=== PATIENT | female | born 1990 | race Two or more races ===

== ENCOUNTER 2016-08-13 04:53 | Inpatient (IN) | payer OTHER ==
[~2016-08-13] VITALS: Ht 167.6 cm; Wt 76.9 kg
--- NOTE | ~2016-08-13 | CON ---
PATIENT'S NAME: SAMPSON VILLELA [facility] AGE: 26 Y [address] ROOM: [address] [address] LOCATION: GOBS ADMIT DATE: 08/13/2016 Consultation DISCHARGE DATE: FAMILY PHYSICIAN: Crispin Barrett MD ATTENDING PHYSICIAN: Crispin Barrett DATE OF CONSULTATION: 08/13/2016 HISTORY OF PRESENT ILLNESS: This is a 26-year-old, 2, para 0-0-1-0, with an EDC of 08/12/2016. She presented earlier this morning in spontaneous early labor for Dr. Crispin Barrett. She is demond about every 2 to 3 minutes and changed her cervix from 1 to 2 cm. However, she had a prolonged bradycardia down into the 60s for over 6 minutes, now that was very slow to resolve despite maneuvers. Initially, a code red for section was called. The heart tones now were 130s with excellent variability and reactivity, so will go ahead and do a spinal anesthetic and monitor baby while we are doing that, and do a section. We recommended a primary low-transverse section for bradycardia. She understands the surgical risks to include, but not limited to, bleeding, transfusion, infection, injury to other organs, and need for additional surgery. We discussed specifically injury to the bowel, bladder, blood vessels, and ureters. We discussed needing sections in the future. The patient has no allergies so we will give her Ancef, and she has never had an operation. Her care has been otherwise uncomplicated. MD SIVAN WAN/dana /[id number] d: 08/13/16 1544 t: 08/19/16 1647, CONSULTATION REPORT
--- NOTE | ~2016-08-13 | HP ---
PATIENT'S NAME: TIMMY SO [facility] AGE: 26 Y [address] ROOM: [place] [address] LOCATION: [facility] ADMIT DATE: 08/13/2016 History & Physical DISCHARGE DATE: FAMILY PHYSICIAN: Sabine Barrett MD ATTENDING PHYSICIAN: Sabine Barrett DATE OF SERVICE: CHIEF COMPLAINT: Question of labor. HISTORY OF PRESENT ILLNESS: The patient is a 26-year-old, 2, para 0-0-1-0 with an EDC of 08/12/2016 who came in with contractions every two to three minutes. She was found to be 1 cm upon presentation. Her has been unremarkable to this point. She is GBS negative. PAST MEDICAL HISTORY: Reviewed and updated from [facility] , and for the most part, is unremarkable other than a history of multiple sclerosis, GERD, and history of palpitations. PAST SURGICAL HISTORY: She has no prior surgical history. CURRENT MEDICATIONS LIST: Include 1. Lansoprazole 30 mg once a day. 2. Promethazine 25 mg p.r.n. 3. vitamins. ALLERGIES: NONE. SOCIAL HISTORY: She is a non-smoker and non-drinker. Her accompanies her. PHYSICAL EXAMINATION: HEENT: Benign. HEART: Regular rate and rhythm. LUNGS: Clear to auscultation bilaterally without wheezes, rhonchi, or rales. ABDOMEN: Soft, nontender, and nondistended. Bowel sounds are positive. EXTREMITIES: No clubbing, cyanosis, or edema. NEUROLOGICAL: No focal deficits. LABORATORY DATA: PATIENT'S NAME: TIMMY SO [facility] AGE: 26 Y [address] ROOM: [place] [address] LOCATION: [facility] ADMIT DATE: 08/13/2016 History & Physical DISCHARGE DATE: FAMILY PHYSICIAN: Sabine Barrett MD ATTENDING PHYSICIAN: Sabine Barrett None. ASSESSMENT: A 26-year-old 2, para 0-0-1-0 at term, with a question of active labor. She certainly is demond at this point. PLAN: We will continue to observe her and plan for expectant management. She is wanting something for pain, so certainly can give her some epidural if need be. We would like to see her change though before we do the epidural. She voiced understanding of that plan as did her . We did discuss that sometimes these do not end up turning into true labor. We will see how she does and have expectant management. SABINE BARRETT MD TAB/modl /[id number] D: [id number] T: 806 HISTORY & PHYSICAL
--- NOTE | ~2016-08-13 | DS ---
PATIENT'S NAME: SAMPSON VILLELA [facility] AGE: 26 Y [address] ROOM: [place] [address] LOCATION: GOBS ADMIT DATE: 08/13/2016 Discharge Summary DISCHARGE DATE: 08/15/2016 FAMILY PHYSICIAN: Crispin Barrett MD ATTENDING PHYSICIAN: Crispin Barrett DISCHARGE DIAGNOSES: 1. Term intrauterine . 2. bradycardia. PROCEDURE: Primary low transverse section. REASON FOR ADMISSION: Please see full H and P. This 26-year-old 2, para 0-0-1-0, presented in labor for Dr. Barrett. After a bradycardia that did resolve, we went ahead and proceeded with section. HOSPITAL COURSE: A primary low transverse section was performed under a spinal anesthetic. Thick meconium stained fluid was noted. She delivered a baby boy, weighing 7 pounds, 3 ounces, who did well. There are no complications of surgery. On postop day #1, the patient was doing well. Hemoglobin was stable, and she began ambulating. On postop day #2, she continued to do well. On 08/15/2016, the patient desired discharge and went home with Motrin and Percocet for pain. She will follow up with Dr. Choe in [address] Barrett in 6 weeks. MD SIVAN WAN/dana /[id number] d: 08/22/16 0155 t: 08/31/16 0858, DISCHARGE SUMMARY
--- NOTE | ~2016-08-13 | OR ---
PATIENT'S NAME: TIMMY SO [facility] AGE: 26 Y [address] ROOM: [place] [address] LOCATION: [facility] ADMIT DATE: 08/13/2016 OR/Procedure Report DISCHARGE DATE: FAMILY PHYSICIAN: Crispin Barrett MD ATTENDING PHYSICIAN: Crispin Barrett SURGEON: Gayatri Choe MD PROGRESSIVE ASSEMBLER AND FITTER: Crispin Barrett MD. DATE OF PROCEDURE: 08/13/2016 PREOPERATIVE DIAGNOSES: 1. Intrauterine at 40 weeks. 2. bradycardia. 3. Early labor. POSTOPERATIVE DIAGNOSES: 1. Intrauterine at 40 weeks. 2. bradycardia. 3. Early labor. 4. Thick meconium stained fluid. PROCEDURE: Primary low transverse section. BLOOD LOSS: 500 mL. COMPLICATIONS: Thick meconium. DESCRIPTION OF PROCEDURE: The patient was taken to the operating room and placed under spinal anesthetic since heart tones looked reassuring. She was prepped and draped and a Edmonds catheter was placed. A verbal time-out was undertaken. Dr. Barrett's assistance was needed as a 1st welder assistant to help with retraction and help to deliver the and perform suction on the because of the thick meconium. The fascia was nicked in the midline, the incision was taken out laterally, and the fascia was sharply and bluntly dissected from the underlying rectus muscles. The peritoneum was opened sharply and incised. A bladder blade was placed. The bladder reflection was taken down sharply and placed behind the bladder blade. A low transverse uterine incision was made with a knife and the incision was carried out laterally with the magnetic tape composer operator's fingers. Bag of water was ruptured and thick meconium stained fluid was noted. The vertex was delivered. Mouth and nares were suctioned. Shoulders and body were delivered through a loose nuchal cord. The baby boy lets out a spontaneous cry. His cord was doubly clamped and cut. He was handed off to the warmer. He received Score of 8 and 9 and weight 7 pounds 3 ounces. A 3-vessel cord was noted. Placenta delivered manually and intact. Cord blood samples and pH were collected and pending. The uterus was exteriorized. Tubes and ovaries looked normal. The PATIENT'S NAME: TIMMY SO [facility] AGE: 26 Y [address] ROOM: [address] [address] LOCATION: BS ADMIT DATE: 08/13/2016 OR/Procedure Report DISCHARGE DATE: FAMILY PHYSICIAN: Crispin Barrett MD ATTENDING PHYSICIAN: Crispin Barrett uterine incision was closed in a running locking stitch of 0 chromic. A second imbricating stitch was performed and [id number] were needed within this incision. The uterus was placed back within the peritoneal cavity. The bladder reflection was dry and intact. The peritoneum was closed with 2-0 Vicryl. 0 Vicryl was used to close the fascia. 4-0 Vicryl was used to close the skin. The patient tolerated the procedure well and goes to recovery after a TAP block was placed. MD SIVAN WAN/dana /[id number] d: 08/13/160 t: 08/19/16 1649, OPERATIVE SUMMARY
[2016-08-13] MEDS ORDERED: PRENATAL 1+1)(P1 TAB PO (07:32)
[2016-08-13 08:17] LABS: BASOPHIL # 0.1 K/uL (0.0-0.2); BASOPHIL % 0.5 %; EOSINOPHIL # 0.2 K/uL (0.0-0.5); EOSINOPHIL % 1.3 %; HEMATOCRIT 39.5 % (33.0-46.0); IMMATURE GRANULOCYTE # 0.2 K/uL (0.0-0.3); IMMATURE GRANULOCYTE % 1.3 %; LYMPHOCYTE # 1.5 K/uL (0.8-4.0); LYMPHOCYTE % 10.2 %; MCH 30.9 pg (27.0-34.0); MCHC 32.9 gm/dL (32.0-36.5); MCV 93.8 fl (83.0-98.0); MONOCYTE % 7.2 %; MPV 11.8 fl (9.4-12.4); NEUTROPHIL # (ANC) 11.4 K/uL (1.8-7.8); NEUTROPHIL % 79.5 %; NRBC % 0 /100WBC (0-0.00); PLATELET COUNT 251 K/uL (150-450); RBC 4.21 M/uL (3.50-5.00); RDW-CV 14.1 % (11.9-14.6); WBC 14.3 K/uL (4.0-11.0)
[2016-08-13 10:47] LABS: PCO2 57 mmHg (35-45)
[2016-08-13 10:48] LABS: BICARBONATE 23.4 mmol/L (18.0-23.0); PO2 34 mmHg (80-90)
--- NOTE | 2016-08-14 04:42 | NUR ---
Significant Event: VSS. Patient ambulating in room and in halls x1 tonight. Percocet last given at 0330 and last dose of toradol last given at 0430. Dressing is dry, clean and intact. fundus is firm and even. Follow up:
[2016-08-14 04:47] LABS: BASOPHIL # 0.1 K/uL (0.0-0.2); BASOPHIL % 0.4 %; EOSINOPHIL # 0.2 K/uL (0.0-0.5); EOSINOPHIL % 1.2 %; HEMOGLOBIN 10.4 g/dL (11.0-15.0); IMMATURE GRANULOCYTE # 0.1 K/uL (0.0-0.3); IMMATURE GRANULOCYTE % 0.8 %; LYMPHOCYTE # 2.3 K/uL (0.8-4.0); LYMPHOCYTE % 15.9 %; MCH 30.8 pg (27.0-34.0); MCHC 33.1 gm/dL (32.0-36.5); MCV 92.9 fl (83.0-98.0); MONOCYTE # 1.2 K/uL (0.0-1.0); MONOCYTE % 8.7 %; MPV 11.1 fl (9.4-12.4); NEUTROPHIL # (ANC) 10.4 K/uL (1.8-7.8); NRBC % 0 /100WBC (0-0.00); PLATELET COUNT 223 K/uL (150-450); RBC 3.38 M/uL (3.50-5.00); RDW-CV 13.9 % (11.9-14.6); WBC 14.2 K/uL (4.0-11.0)
[2016-08-14 04:49] LABS: HEMATOCRIT 31.4 % (33.0-46.0)
--- NOTE | 2016-08-14 15:46 | NUR ---
Met with patient and at bedside today. speaks and understands Slovak. Introduced myself and the role of the CM department. Dad states that his plan is to add baby to his insurance through his work. I explained to him that he only has 30 days to get this done. He was appreciative of this information and states he is going back to work on August 20 so he will do this then. He states they have all necessary items for baby. He denies the family has no other discharge needs.
--- NOTE | 2016-08-14 16:16 | NUR ---
Last VS: T:98.2 P:77 R: 12 BP: 98/49 Pain ratin Last pain med: Percocet(1) Medicated at: 1620 Effective: Yes R Lung sounds: , L Lung sounds: Fundus: FIRM Lochia: SMALL Breasts: SOFT Nipples: BOTTLEFEEDING MORE THAN NURSING Incision appearance: C/S INC>C/D/I Incision closure: STERI STRIPS OK, SOME LOOSE Bowel sounds: Passing flatus: Y Voiding well: Y Significant event: *.UP AD KEYA, SHOWERED AT 1045 WHEN I TOOK BABY TO [facility] FOR TESTING. THEN WALKED HALLWAYS X2. LAST MOTRIN GIVEN @0116.
--- NOTE | 2016-08-15 05:52 | NUR ---
VSS, fundus firm, midline, scant flow, steri strips dry/intact, 2 Perc at 2101
--- NOTE | 2016-08-15 12:35 | NUR ---
Student charting read.
[2016-08-15] MEDS ORDERED: SURFAK240 MG PO (13:12)
[2016-08-15] MEDS ORDERED: APNO TOP (13:13)
[2016-08-15] MEDS ORDERED: MOTRIN800 MG PO (13:13)
[2016-08-15] MEDS ORDERED: PERCOCET 5-3251 EACH PO (13:14)
== END 2016-08-15 16:20 | disposition disaster alternative care site (69) | DRG 766 ==
LOC: GOBS 04:53
PROVIDERS: Obstetrics & Gynecology; ADMIT Family Medicine
PROC: 10D00Z1 Extraction of Products of Conception, Low, Open Approach (ICD-10-PCS; principal; 2016-08-13)
DX: O76 Abnormality in fetal heart rate and rhythm complicating labor and delivery (principal); Z37.0 Single live birth; Z3A.40 40 weeks gestation of pregnancy
CPT/HCPCS: J0690; J1885; J2590; J3010; J7120